=== PATIENT | female | born 1960 | race Two or more races ===

== ENCOUNTER → 2017-12-21 | Outpatient (CLI) | payer OTHER ==
--- NOTE | 2017-12-21 16:45 | RAD ---
Bilateral lower extremity arterial ultrasound with KELVIN measurements, 12/21/2017: History: Claudication Duplex evaluation of the major arteries in both lower extremities was performed including grayscale, color-flow and spectral Doppler analysis. There are mild scattered atherosclerotic plaques in both lower extremities. The common femoral Doppler waveforms are monophasic bilaterally. This raises the possibility of aortoiliac inflow disease. The profunda femoris, superficial femoral and popliteal Doppler waveforms are all monophasic. No significant focal velocity elevation is seen in the femoral or popliteal arteries to suggest high-grade focal stenosis. Patent anterior tibial, peroneal and posterior tibial arteries are present in both lower legs demonstrating monophasic Doppler waveforms. There is greater dampening of the Doppler waveforms in the left lower leg compared to the right. Patent dorsalis pedis arteries are present bilaterally. The left dorsalis pedis waveform is also dampened compared to the right. Resting KELVIN measurements were also obtained. Both KELVIN measurements are moderately decreased measuring 0.5 bilaterally. IMPRESSION: 1. 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 2. Mild scattered atherosclerotic plaquing in both lower extremities without evidence of high-grade focal stenosis. 3. Three-vessel runoff in both lower legs. 4. Degradation of the distal Doppler waveforms, worse on the left. 5. Abnormal resting KELVIN measurements of 0.5 bilaterally.
== END | disposition home or self-care (01) ==
LOC: US 14:06
PROVIDERS: ATTEND Family Medicine
DX: G60.0 Hereditary motor and sensory neuropathy (principal); I70.203 Unspecified atherosclerosis of native arteries of extremities, bilateral legs
CPT/HCPCS: 93922; 93923